=== PATIENT | male | born 2000 | race Two or more races ===

== ENCOUNTER 2023-07-07 17:30 | Emergency (ER) | payer OTHER, SELFPAY ==
--- NOTE | ~2023-07-07 | XR_ITS ---
EXAMINATION: XR chest 1V portable DATE: 07/07/2023 19:59 INDICATION: Palpitations. TECHNIQUE: A single frontal view of the chest was obtained. COMPARISON: CT abdomen and pelvis 02/20/2019 FINDINGS: There is no pneumonia, pleural effusion, or pneumothorax. The heart size is normal. IMPRESSION: 1. No acute cardiopulmonary disease. Reviewed, dictated and finalized at location E. CUTTER
[2023-07-07 17:43] VITALS: BP 125/53; PULSE 77; RESP 18; TEMP 37.1; O2SAT 100
[2023-07-07 19:08] VITALS: BP 104/60; PULSE 72; RESP 20; O2SAT 100
--- NOTE | 2023-07-07 19:32 | ECG_ITS ---
Measurements Intervals [place] Rate: 70 P: 30 DE: 121 QRS: 77 QRSD: 102 T: 44 QT: 390 QTc: 422 Interpretive Statements SINUS RHYTHM WITH SINUS ARRHYTHMIA INCOMPLETE RIGHT BUNDLE BRANCH BLOCK BORDERLINE ECG NO PREVIOUS ECG AVAILABLE FOR COMPARISON Electronically Signed On 07-08-2023 6:31:19 FINANCIAL RETIREMENT PLAN SPECIALIST by Scottie Mason D.O.
--- NOTE | 2023-07-07 19:38 | ED.GENADULT ---
HPI - General Adult General Chief complaint: Arrhythmia/Palpitations Stated complaint: racing heart Time Seen by Provider: 07/07/23 19:01 Source: patient Mode of arrival: ambulatory Limitations: no limitations History of Present Illness HPI narrative: This is a 23-year-old male who presents to the ED with chief complaint of palpitations ongoing for the last couple of days. Reports he is a daily marijuana user and has never had any problems like this before. He does note that he has had a lot of increased caffeine intake in the last couple of days drinking a lot more cokes than normal. Reports it feels like his heart is beating hard. Comes in waves. denies chest pain or shortness of breath. Denies any further complaints. Related Data Allergies Allergy/AdvReac Type Severity Reaction Status Date / Time cetirizine AdvReac Unknown Palpitation Verified 07/07/23 19:07 s Review of Systems Review of Systems: All systems as dictated in HPI Exam Narrative: GENERAL: Well-appearing, well-nourished, and in no acute distress. HEAD: Normocephalic, atraumatic. EYES: PERRLA and EOMI. ENT: Nares clear, no rhinorrhea or epistaxis. Mucous membranes moist. Oropharynx without tonsillar hypertrophy exudate or other lesions. NECK: Supple. No adenopathy or masses. CHEST: No respiratory distress. Clear to auscultation. No wheezes rales or rhonchi HEART: Regular rate and rhythm. No murmur heard. Normal peripheral pulses. ABDOMEN: Soft, nontender, nondistended, normal active bowel sounds. MSK: Normal range of motion. No edema. SKIN: Warm, dry, no rash. NEURO: Alert and oriented x3. No focal deficits. PSYCH: Normal mood and affect. Course Vital Signs Vital signs: Vital Signs Temperature 98.8 F 07/07/23 17:43 Pulse Rate 77 07/07/23 17:43 Respiratory Rate 18 07/07/23 17:43 Blood Pressure 125/53 L 07/07/23 17:43 Pulse Oximetry 100 07/07/23 17:43 Temperature 98.8 F 07/07/23 17:43 Pulse Rate 84 07/07/23 20:09 Respiratory Rate 20 07/07/23 20:09 Blood Pressure 118/64 07/07/23 20:09 Pulse Oximetry 100 07/07/23 20:09 Medical Decision Making [facility] Narrative Medical decision making narrative: This is a 23-year-old male who presents to the ED with chief complaint of anxiety and palpitations for the past couple of days. Vitals are normal. Exam is benign. He has no chest pain. EKG shows sinus rhythm with sinus arrhythmia. Chest x-ray is normal. He improved somewhat here with Ativan and hydroxyzine. He feels ready to go. He remains without chest pain/dyspnea and vitals remained stable. He had a dramatic increase in caffeine last couple days and suspect this is likely the cause. Pt will be discharged in stable condition. Return precautions given and supportive measures discussed. Pt is understanding and agreeable with plan for discharge and follow-up with PCP. Vital Signs Vital Signs: Vital Signs Temperature 98.8 F 07/07/23 17:43 Pulse Rate 77 07/07/23 17:43 Respiratory Rate 18 07/07/23 17:43 Blood Pressure 125/53 L 07/07/23 17:43 Pulse Oximetry 100 07/07/23 17:43 Temperature 98.8 F 07/07/23 17:43 Pulse Rate 84 07/07/23 20:09 Respiratory Rate 20 07/07/23 20:09 Blood Pressure 118/64 07/07/23 20:09 Pulse Oximetry 100 07/07/23 20:09 ECG Data EKG #1: ECG completion date: 07/07/23 ECG completion time: 19:47 Prior ECG tracings: not available for review Interpretation: A sinus rhythm with sinus arrhythmia Rate 70 Normal QRS Normal QT No acute ischemic findings Discharge Plan Discharge Clinical Impression: Palpitations Patient Disposition: Home, Self-Care Condition: Stable Instructions: Antibiotic Form Additional Instructions: Your exam and imaging today are reassuring. The EKG shows a slight arrhythmia but there is no damage occurring to the heart. Please follow-up with your primary care doctor. C
[2023-07-07] MEDS: LORazepam (*CRX) 0.5 MG TABLET PO (19:40)
[2023-07-07 20:09] VITALS: BP 118/64; PULSE 84; RESP 20; O2SAT 100
[2023-07-07] MEDS: hydrOXYzine HCL 25 MG TABLET PO (21:39)
== END 2023-07-07 21:36 | disposition home or self-care (01) ==
PROVIDERS: Emergency Provider Physician Assistant
DX: R00.2 Palpitations (principal); R94.31 Abnormal electrocardiogram [ECG] [EKG]
CPT/HCPCS: 71045; 93005; 99284; A9270

== ENCOUNTER 2023-07-12 13:51 | Emergency (ER) | payer OTHER, SELFPAY ==
[2023-07-12] VITALS (38 sets, daily range): BP systolic 103–123; BP diastolic 62–79; PULSE 60–100; RESP 12–20; TEMP 36.4; O2SAT 95–100
--- NOTE | ~2023-07-12 | XR_ITS ---
XR chest 2V DATE: 07/12/2023 14:21 INDICATION: Chest pain TECHNIQUE: PA and lateral views COMPARISON: 07/03/2023 portable AP chest FINDINGS: There is mild left subcutaneous emphysema. There is pneumomediastinum extending into the ce rvical area. Slight left pneumothorax is suggested. Normal heart size. No hilar or mediastinal enlargement. No pulmonary infiltrate or consolidation, p ulmonary vascular congestion or right pneumothorax. IMPRESSION: Pneumomediastinum, minimal left chest subcutaneous emphysema and probable slight left pne umothorax Reviewed, dictated and finalized at location B. OR TRAINER IMPRESSION: Pneumomediastinum, minimal left chest subcutaneous emphysema and pr obable slight left pneumothorax
--- NOTE | 2023-07-12 13:53 | ECG_ITS ---
Measurements Intervals [place] Rate: 70 P: 35 [place]: 122 QRS: 74 QRSD: 96 T: 42 QT: 377 QTc: 408 Interpretive Statements SINUS RHYTHM WITH SINUS ARRHYTHMIA NONSPECIFIC T-WAVE ABNORMALITY- INFERIOR LEADS BASELINE ARTIFACT- I, II, III, AVR, AVL, AVF, V1 BORDERLINE ECG COMPARED TO ECG 07/07/2023 19:47:02 T-WAVE ABNORMALITY NOW PRESENT Electronically Signed On 07-12-2023 14:09:53 [employer] by Scottie Mason D.O.
[2023-07-12 14:07] LABS: Basophils Absolute Auto 0.1 K/mm3 (0.0-0.1); Basophils Percent Auto 0.3 % (0.2-1.2); Eosinophils Percent Auto 0.1 % (0-4.4); Hematocrit 46.3 % (42.0-52.0); Hemoglobin 16.2 g/dL (14.0-18.0); Immature Granulocyte Absolute 0.09 K/mm3 (0.00-0.031); Immature Granulocyte Percent A 0.5 % (0-0.5); Lymphocytes Absolute Auto 1.67 K/mm3 (0.9-3.2); Lymphocytes Percent Auto 8.5 % (18.3-44.2); Mean Corpuscular Hemoglobin 30.2 pg (26-34); Mean Corpuscular Volume 86.2 fl (80-100); Mean Platelet Volume 10.2 fl (7.4-10.4); Monocytes Absolute Auto 1.1 K/mm3 (0.1-0.6); Monocytes Percent Auto 5.6 % (2.6-8.5); Neutrophils Absolute Auto 16.7 K/mm3 (1.3-6.7); Platelet Count Result 229 k/mm3 (150-375); Red Blood Count 5.37 M/mm3 (4.6-6.20); Red Cell Distribution Width 12.3 % (11.5-14.5); White Blood Count 19.6 K/mm3 (4.5-10.0)
[2023-07-12 14:19] LABS: Alanine Aminotransferase 23 U/L (6-50); Alkaline Phosphatase 95 U/L (38-126); Anion Gap 14 mmol/L (8-16); Aspartate Amino Transferase 23 U/L (17-59); Bilirubin,Total 1.9 mg/dL (0.2-1.3); Blood Urea Nitrogen 13 mg/dL (9-20); Calcium 9.6 mg/dL (8.4-10.2); Carbon Dioxide 23 mmol/L (22-30); Chloride 102 mmol/L (98-107); Estimated CRCL calculation 107 ml/min; Estimated Glomerular Filt Rate > 60; Glucose 113 mg/dL (65-110); Lipase 109 U/L (23-300); Potassium 3.6 mmol/L (3.4-5.0); Sodium 139 mmol/L (137-145)
[2023-07-12 14:47] LABS: Troponin I 0.091 ng/mL (0.000-0.034)
[2023-07-12 14:56] LABS: INR 1.1; Prothrombin Time 14.6 Seconds (11.1-14.7)
[2023-07-12 14:57] LABS: Partial Thromboplastin Time 27.6 SECONDS (22.3-36.8)
[2023-07-12] MEDS: ASPIRIN 81 MG CHEWABLE TABLET 324 MG PO (15:39)
--- NOTE | 2023-07-12 16:50 | ECG_ITS ---
Measurements Intervals [place] Rate: 62 P: 22 MD: 126 QRS: 72 QRSD: 90 T: 44 QT: 392 QTc: 399 Interpretive Statements SINUS RHYTHM WITH SINUS ARRHYTHMIA BASELINE ARTIFACT- I, II, AVR, AVL NORMAL ECG COMPARED TO ECG 07/12/2023 13:59:53 NO SIGNIFICANT CHANGES Electronically Signed On 07-12-2023 17:09:37 CRISIS CLINICIAN by Scottie Mason D.O.
--- NOTE | 2023-07-12 17:22 | ED.CHESTPAIN ---
HPI - Chest Pain General Chief Complaint: Chest Pain <JUNIOR Burton Last Filed: 07/12/23 21:57> Stated Complaint: chest pain <JUNIOR Burton Last Filed: 07/12/23 21:57> Time Seen by Provider: 07/12/23 17:04 <JUNIOR Burton Last Filed: 07/12/23 21:57> Source: patient <JUNIOR Burton Last Filed: 07/12/23 21:57> Mode of arrival: ambulatory <JUNIOR Burton Last Filed: 07/12/23 21:57> Limitations: no limitations <JUNIOR Burton Last Filed: 07/12/23 21:57> History of Present Illness HPI narrative: This is a 23-year-old male that presents to the emergency department for chest pain ongoing since this morning. Reports he was working outside when suddenly he started to have pain in his throat. He then started to feel short of breath. This is been ongoing since. He also has a dull pain in his epigastrium. Denies fever, cough, or lower extremity edema. <Pat Brian PA-C - Last Filed: 07/12/23 21:57> Related Data Allergies/Adverse Reactions: Allergies Allergy/AdvReac Type Severity Reaction Status Date / Time cetirizine AdvReac Unknown Palpitation Verified 07/12/23 13:52 s <JUNIOR Burton Last Filed: 07/12/23 21:57> Review of Systems Review of Systems: CONSTITUTIONAL: Denies fever CARDIOVASCULAR: Reports chest pain. Denies palpitations, or edema. RESPIRATORY: Reports dyspnea. <JUNIOR Burton Last Filed: 07/12/23 21:57> All systems reviewed & are unremarkable except as noted in HPI and below <JUNIOR Burton Last Filed: 07/12/23 21:57> [facility] Past Medical History Medical History: Medical History (Updated 07/13/23 @ 00:00 by Background Daemon) No active medical problems <JUNIOR Burton Last Filed: 07/12/23 21:57> Social History Social History: Social History (Updated 07/12/23 @ 17:24 by Pat Brian PA-C) Substance use: current Substance use type: marijuana <Pat Brian PA-C - Last Filed: 07/12/23 21:57> Exam Narrative: GENERAL: Well-appearing, well-nourished, and in no acute distress. HEAD: Normocephalic, atraumatic. EYES: EOMI. NECK: Supple. No adenopathy or masses. No JVD CHEST: Clear to auscultation. No respiratory distress. No wheezes rales or rhonchi HEART: Regular rate and rhythm. No murmur heard. Normal peripheral pulses. EXTREMITIES: Normal range of motion. No edema. SKIN: Warm, dry, no rash. NEURO: No focal deficits. Alert and oriented x3. PSYCH: Normal mood and affect <Pat Brian PA-C - Last Filed: 07/12/23 21:57> Course Course Emergency Course: patient and family updated on workup and need for transfer for higher level of care <Pat Brian PA-C - Last Filed: 07/12/23 21:57> BEAD MAKER/PA Physician Supervision For this patient encounter, I reviewed the BEAD MAKER or PA documentation, treatment plan, and medical decision making; and I had [id number] time with this patient. <Masoud Christensen MD - Last Filed: 07/13/23 07:32> Consultations Consultation #1: Dr. Kahn, cardiothoracic surgeon at [place] accepts transfer <Pat Brian PA-C - Last Filed: 07/12/23 21:57> Date: 07/12/23 <Pat Brian PA-C - Last Filed: 07/12/23 21:57> Vital Signs Vital signs: Vital Signs Temperature 97.5 F L 07/12/23 13:54 Pulse Rate 66 07/12/23 13:54 Respiratory Rate 16 07/12/23 13:54 Blood Pressure 123/79 07/12/23 13:54 Pulse Oximetry 99 07/12/23 13:54 Oxygen Delivery Room Air 07/12/23 13:54 Temperature 97.5 F L 07/12/23 13:54 Pulse Rate 63 07/12/23 21:01 Respiratory Rate 14 07/12/23 21:01 Blood Pressure 105/64 07/12/23 21:01 Pulse Oximetry 99 07/12/23 21:01 Oxygen Delivery Room Air 07/12/23 13:54 <Pat Brian PA-C - Last Filed: 07/12/23 21:57> Vital Signs Temperature 97.5 F L 07/12/23 13:54 Pulse Rate 66 07/12/23 13:54 Respiratory Rate
[2023-07-12 17:32] LABS: Troponin I 0.096 ng/mL (0.000-0.034)
--- NOTE | 2023-07-12 17:33 | PC.NURSE ---
Per EDP Pat LOMBARDO, pt placed on 3L NC for comfort
--- NOTE | 2023-07-12 17:43 | PC.NURSE ---
Dayanna with [facility] transfer center called for patient triage information. States the hospital is at capacity but will call when a bed becomes available.
--- NOTE | 2023-07-12 20:11 | ECG_ITS ---
Measurements Intervals [place] Rate: 70 P: 48 [place]: 128 QRS: 73 QRSD: 97 T: 30 QT: 389 QTc: 420 Interpretive Statements SINUS RHYTHM WITH SINUS ARRHYTHMIA NONSPECIFIC T-WAVE ABNORMALITY- ANT/INF LEADS BASELINE ARTIFACT- I, II, III, AVR, AVL BORDERLINE ECG COMPARED TO ECG 07/12/2023 16:58:48 T-WAVE ABNORMALITY NOW PRESENT Electronically Signed On 07-13-2023 16:29:17 ACCOUNTING/FINANCE TUTOR by Scottie Mason D.O.
[2023-07-12 20:37] LABS: Troponin I 0.097 ng/mL (0.000-0.034)
--- NOTE | 2023-07-12 21:08 | PC.NURSE ---
Dayanna with [facility] transfer center called with an update on bed status. Pt will be going to [facility], bed 7490. Report call to [phone]
--- NOTE | 2023-07-12 21:44 | PC.NURSE ---
Report given to Jayla Ritchie at [place]
== END 2023-07-12 21:54 | disposition short-term general hospital (02) ==
PROVIDERS: Emergency Medicine; Emergency Provider Physician Assistant
DX: J98.2 Interstitial emphysema (principal); J93.9 Pneumothorax, unspecified
CPT/HCPCS: 36415; 71046; 80053; 83690; 84484; 85025; 85610; 85730; 93005; 99285; A9270